=== PATIENT | male | born 1950 | race Caucasian/White ===

== ENCOUNTER 2022-08-05 20:28 | Emergency (ER) | payer MEDICARE ==
[2022-08-05 21:17] LABS: HEMATOCRIT 43.2 % (38.3-50.1); HEMOGLOBIN 14.4 g/dL (12.9-17.7); MEAN CORPUSCULAR HEMOGLOBIN 30.3 pg (27.0-33.3); MEAN CORPUSCULAR HGB CONC 33.4 g/dL (28.7-35.3); MEAN CORPUSCULAR VOLUME 90.8 fL (80.8-98.7); RED BLOOD CELL COUNT 4.76 x10(6)uL (3.90-5.90); RED CELL DISTRIBUTION WIDTH 13.6 % (12.4-15.0); WHITE BLOOD CELL COUNT,WBC 5.4 x10-3/uL (3.2-10.1)
[2022-08-05 21:20] LABS: BLOOD UREA NITROGEN,BUN 21 mg/dL (7-18); BUN/CREATININE RATIO 17.5 (9-20); CALCIUM 8.9 mg/dL (8.6-10.2); CARBON DIOXIDE,CO2 30 mmol/L (21-32); CHLORIDE,CL 105 mmol/L (100-110); CREATININE 1.2 mg/dL (0.70-1.30); ESTIMATED GFR 65 mL/min (>60); GLUCOSE RANDOM 113 mg/dL (80-116); POTASSIUM,K 4.3 mmol/L (3.5-5.3); SODIUM,NA 141 mmol/L (135-145)
[2022-08-05 21:26] LABS: ALANINE AMINOTRANSFERASE,ALT 54 U/L (12-36); ALBUMIN 3.4 g/dL (3.2-4.6); ALKALINE PHOSPHATASE 76 IU/L (56-112); ASPARTATE AMNIOTRANSFERASE,AST 33 IU/L (5-25); BILIRUBIN TOTAL 0.4 mg/dL (0.1-1.3); PROTEIN TOTAL,TP 6.7 g/dL (6.0-8.0)
[2022-08-05 21:30] LABS: TROPONIN I 90.3 pg/mL (4.0-60.3)
[2022-08-05 21:31] LABS: C-REACTIVE PROTEIN < 0.2 mg/dL (0.5-0.9)
[2022-08-05] MEDS ORDERED: Sodium Chloride 0.9% 10 ML Syringe FLUSH PRN (21:38)
[2022-08-05] MEDS ORDERED: Aspirin 81 MG Tab.Chew PO ONE ×2 (21:39→21:40)
[2022-08-06] MEDS ORDERED: Heparin Sodium 5,000 Units/ML Vial IVPUSH ONE (00:10)
[2022-08-06] MEDS ORDERED: Heparin Sodium/0.45% NaCl 500 ML IV SCH (00:15)
== END 2022-08-06 01:01 | disposition other institution (70) ==
LOC: FB.ED 20:28
DX: I21.4 Non-ST elevation (NSTEMI) myocardial infarction (principal)
CPT/HCPCS: 36415; 71045; 80053; 84484; 85027; 86140; 93005; 96365; 96375; 99285; A9270; J1644